=== PATIENT | female | born 1940 | race Caucasian/White ===

== ENCOUNTER 2016-12-25 10:59 | Emergency (ER) | payer MEDICARE ==
[2016-12-25] MEDS ORDERED: IOPAMIDOL 300 (61%) 100 ML VIAL IV ONE (11:00)
[2016-12-25] MEDS ORDERED: ONDANSETRON 4 MG/2ML 2 ML VIAL ONE (11:48)
[2016-12-25] MEDS ORDERED: PHENAZOPYRIDINE HCL 200 MG TABLET ONE (11:49)
[2016-12-25] MEDS ORDERED: LACTATED RINGERS 1,000 ML ONE (11:49)
[2016-12-25 12:21] LABS: ABSOLUTE NEUTROPHIL COUNT 1.9 K/mm3 (1.8-7.7); BASO % 0.9 % (0.2-1.0); EOS # 0.1 (0.0-0.5); EOS % 3.8 % (0.9-2.9); HEMATOCRIT 45.3 % (37.0-47.0); HEMOGLOBIN 14.6 gm/l (12.0-16.0); IMM NEUT% 0.3 % (0-1); LYMPH # 0.7 (1.0-4.8); LYMPH % 22.3 % (15-45); MEAN CELL VOLUME 98.5 fl (81.0-99.0); MEAN CORPUSCULAR HEMOGLOBIN 31.7 pg (27.0-31.0); MEAN CORPUSCULAR HGB CONC 32.2 g/dl (33.0-37.0); MEAN PLATELET VOLUME 11.2 fl (7.4-10.4); MONO # 0.4 (0.0-0.8); MONO % 13.2 % (4-12); NEUT % 59.5 % (43-75); PLATELET COUNT 106 K/mm3 (130-400); RED CELL DISTRIBUTION WIDTH 12.3 % (11.5-14.5)
[2016-12-25 12:22] LABS: URINE BILIRUBIN NEGATIVE (NEGATIVE); URINE BLOOD 2+ (NEGATIVE); URINE GLUCOSE (UA) NEGATIVE (NEGATIVE); URINE LEUKOCYTE ESTERASE 2+ (NEGATIVE); URINE NITRITE NEGATIVE (NEGATIVE); URINE PROTEIN NEGATIVE (NEGATIVE); URINE UROBILINOGEN NORMAL (0-1 mg/dl)
[2016-12-25 12:24] LABS: URINE APPEARANCE CLEAR; URINE COLOR YELLOW
[2016-12-25 12:30] LABS: ALB/GLOB RATIO 1.6 (>1.0); CALCIUM 9.3 mg/dL (8.6-10.3)
[2016-12-25 12:31] LABS: URINE AMORPHOUS SEDIMENT FEW; URINE BACTERIA RARE; URINE EPITHELIAL CELLS RARE /hpf
--- NOTE | 2016-12-25 14:57 | CT ---
ABD/PELVIS W/ CON COMPARISON: CT abdomen and pelvis with contrast, 04/16/2016 HISTORY: Suprapubic pain, being treated for a urinary tract infection, now with abdominal pain. Technique: No oral contrast. Intravenous injection 100 mL Isovue 300. Using a [employer] [address] scanner, images were obtained from the diaphragm to the floor the pelvis. An automated dose reduction technique was used to minimize patient radiation dose. Dose information: DLP(mGycm): 1105.20 FINDINGS: Lung bases: Normal. Inferior mediastinum and heart: Normal. Liver: Normal. Gallbladder:Normal. Bile ducts: Normal. Pancreas: Marked atrophy. Spleen: Normal size and enhancement. In the inferior pole, there are 4 lesions of to 14 mm in diameter that do not enhance. Adrenal glands: Normal. Kidneys: Left kidney lower pole medial 15.4 x 16.2 mm solid mass. Bilateral simple cysts. No hydronephrosis or calculi. Ureters: Normal Urinary bladder: Decompressed by suprapubic catheter. Uterus and adnexa: Hysterectomy. Blood vessels: Normal Lymph nodes: Normal Stomach: There are surgical clips near the gastroesophageal junction and what appears to be a Ama fundoplication. Duodenum: Normal Small intestine: Normal Appendix: Absent. Colon: Marked fecal loading. Abdominal wall and supporting musculature: Normal Bones: No acute finding. 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 IMPRESSION: 1. Normal appearance of suprapubic catheter, normally positioned in the decompressed urinary bladder. No evidence of blood, stone, or mass. 2. In the lower pole left kidney, 16.2 x 15.4 cm mass. Small renal cell carcinoma until proven otherwise. 3. Constipation with marked fecal loading. 4. 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 The report was sent to the emergency department electronic medical record system, 12/25/2016 at 14:59
== END 2016-12-25 16:36 | disposition home or self-care (01) ==
LOC: ED 10:59
DX: R10.9 Unspecified abdominal pain (principal); N28.89 Other specified disorders of kidney and ureter; B02.9 Zoster without complications; K21.9 Gastro-esophageal reflux disease without esophagitis
CPT/HCPCS: 83690; 85025; 87086; 80053; 81001; 74177; 99284 ×2; 96374; 96361 ×3; A9270; J2405; J7120; Q9967